=== PATIENT | male | born 1960 | race Caucasian/White ===

== ENCOUNTER 2019-04-27 17:31 | Inpatient (IN) | payer BC, OTHER ==
[2019-04-27] MEDS: SODIUM CHLORIDE 0.9% 1L BAG IV* (19:10)
[2019-04-27] MEDS: ONDANSETRON 4 MG INJ IV (19:10)
[2019-04-27] MEDS: morphine 4 MG/ML VIAL IV ×2 (19:10→19:43)
[2019-04-27 19:17] LABS: ADD MAN DIFF? NO
[2019-04-27 19:22] LABS: WHITE BLOOD COUNT 14.2 10^3/ul (4.8-10.8)
[2019-04-27 19:22] LABS: BASOPHILS % 0.2 % (0.0-2.0); HEMATOCRIT 47.7 % (42.0-52.0); HEMOGLOBIN 16.3 g/dl (14.0-18.0); LYMPHOCYTES # 0.9 10^3/ul (0.8-2.9); MEAN CORPUSCULAR HEMOGLOBIN 29.2 pg (29.0-33.0); MEAN CORPUSCULAR HGB CONC 34.2 g/dl (32.0-37.0); MEAN CORPUSCULAR VOLUME 85.3 fl (82.0-101.0); MEAN PLATELET VOLUME 10.9 fl (7.4-10.4); MONOCYTE # 0.7 10^3/ul (0.3-0.9); MONOCYTES % 4.9 % (0.0-11.0); NEUTROPHIL # 12.6 10^3/ul (1.6-7.5); NEUTROPHILS % 88.5 % (39.0-77.0); PLATELET COUNT 269 10^3/UL (140-415); RED BLOOD COUNT 5.59 10^6/ul (4.70-6.10); RED CELL DISTRIBUTION WIDTH 13.5 % (11.5-14.5)
[2019-04-27] MEDS: PIPER-TAZO 3.375 GM IV (PMX) 100 ML IVPB (19:27)
[2019-04-27 19:36] LABS: ALANINE AMINOTRANSFERASE 23 IU/L (13-69); ALBUMIN 4.5 g/dl (3.3-4.9); ALBUMIN/GLOBULIN RATIO 1.09; ALKALINE PHOSPHATASE 71 IU/L (42-121); ANION GAP 14 (5-13); ASPARTATE AMINO TRANSFERASE 33 IU/L (15-46); BILIRUBIN,INDIRECT 0.8 mg/dl (0-1.1); BILIRUBIN,TOTAL 0.8 mg/dl (0.2-1.3); BLOOD UREA NITROGEN 18 mg/dl (7-20); CALCIUM 9.2 mg/dl (8.4-10.2); CARBON DIOXIDE 23 mmol/L (21-31); CHLORIDE 105 mmol/L (97-110); CREATININE 1.08 mg/dl (0.61-1.24); Estimated GFR > 60 mL/min (>60); GLUCOSE 157 mg/dl (70-220); LIPASE 109 U/L (23-300); POTASSIUM 4.1 mmol/L (3.5-5.1); SODIUM 142 mmol/L (135-144); TOTAL PROTEIN 8.6 g/dl (6.1-8.1)
[2019-04-27 19:39] LABS: INR 0.95; PARTIAL THROMBOPLASTIN TIME 24.9 Sec (23.0-35.0); PROTIME 12.8 Sec (11.9-14.9)
[2019-04-27 19:52] LABS: TROPONIN-I < 0.012 ng/ml (0.000-0.120)
[2019-04-27 19:59] LABS: LACTIC ACID 2.4 mmol/L (0.5-2.0)
[2019-04-27] MEDS ORDERED: ONDANSETRON 4 MG INJ IV ×2 (20:00→22:00)
[2019-04-27] MEDS: LIDOCAINE 2% VISC 15 ML CUP PO (20:15)
[2019-04-27] MEDS ORDERED: MIDAZOLAM 1 MG/ML 2 ML INJ (21:34)
[2019-04-27] MEDS ORDERED: FAMOTIDINE 20 MG INJ (21:35)
[2019-04-27] MEDS ORDERED: FENTAnyl 50 MCG/ML VIAL IV ×2 (22:00)
[2019-04-27] MEDS ORDERED: LABETALOL HCL 20MG INJ IV (22:00)
[2019-04-27] MEDS ORDERED: HYDROmorphONE 1 MG/5 ML IV SYRINGE IV ×3 (22:00)
[2019-04-27] MEDS ORDERED: DEXAMETHASONE 4 MG/ML 5 ML INJ (22:38)
[2019-04-27] MEDS ORDERED: ONDANSETRON 4 MG INJ (22:38)
[2019-04-27] MEDS: BUPIVACAINE 0.5%/EPI (SDV) 30 ML INJ (22:40)
[2019-04-27] MEDS ORDERED: LABETALOL HCL 20MG INJ (22:48)
[2019-04-27] MEDS ORDERED: SUGAMMADEX SODIUM 200 MG/2 ML VIAL IV (23:11)
[2019-04-27 23:12] LABS: LACTIC ACID 1.5 mmol/L (0.5-2.0)
[2019-04-27] MEDS ORDERED: DIPHENHYDRAMINE 50 MG INJ IV (23:30)
[2019-04-27] MEDS ORDERED: IBUPROFEN 600 MG TAB PO (23:30)
[2019-04-27] MEDS ORDERED: METOCLOPRAMIDE 10 MG INJ IV (23:30)
[2019-04-27] MEDS: FENTAnyl 50 MCG/ML VIAL IV ×2 (23:35→23:46)
[2019-04-27] MEDS: ACETAMINOPHEN 1000MG/100ML IV 100 ML IVPB (23:45)
[2019-04-28 01:21] LABS: LACTIC ACID 1.6 mmol/L (0.5-2.0)
[2019-04-28] MEDS: D5W-0.45 NACL + KCL 20 MEQ 1,000 ML IV ×3 (01:39→19:17)
[2019-04-28] MEDS: PIPER-TAZO 3.375 GM IV (PMX) 100 ML IVPB ×4 (01:40→17:47)
[2019-04-28] MEDS: HYDROmorphONE 0.5 MG/0.5 ML SYG IV ×2 (07:37→15:05)
[2019-04-28 09:09] LABS: ADD MAN DIFF? NO
[2019-04-28 09:18] LABS: BASOPHILS % 0.1 % (0.0-2.0); HEMOGLOBIN 13.9 g/dl (14.0-18.0); LYMPHOCYTES # 0.7 10^3/ul (0.8-2.9); LYMPHOCYTES % 4.5 % (15.0-51.0); MEAN CORPUSCULAR HGB CONC 33.9 g/dl (32.0-37.0); MEAN CORPUSCULAR VOLUME 85.4 fl (82.0-101.0); MEAN PLATELET VOLUME 11.4 fl (7.4-10.4); MONOCYTE # 0.6 10^3/ul (0.3-0.9); MONOCYTES % 3.9 % (0.0-11.0); NEUTROPHIL # 13.4 10^3/ul (1.6-7.5); NEUTROPHILS % 91.2 % (39.0-77.0); PLATELET COUNT 221 10^3/UL (140-415); RED CELL DISTRIBUTION WIDTH 13.9 % (11.5-14.5)
[2019-04-28 09:18] LABS: WHITE BLOOD COUNT 14.7 10^3/ul (4.8-10.8)
[2019-04-28 09:39] LABS: ALANINE AMINOTRANSFERASE 17 IU/L (13-69); ALBUMIN 3.7 g/dl (3.3-4.9); ALBUMIN/GLOBULIN RATIO 1.12; ALKALINE PHOSPHATASE 40 IU/L (42-121); ANION GAP 9 (5-13); ASPARTATE AMINO TRANSFERASE 19 IU/L (15-46); BILIRUBIN,INDIRECT 1.2 mg/dl (0-1.1); BILIRUBIN,TOTAL 1.2 mg/dl (0.2-1.3); BLOOD UREA NITROGEN 14 mg/dl (7-20); CALCIUM 8.5 mg/dl (8.4-10.2); CARBON DIOXIDE 23 mmol/L (21-31); CHLORIDE 108 mmol/L (97-110); CREATININE 0.93 mg/dl (0.61-1.24); Estimated GFR > 60 mL/min (>60); GLUCOSE 170 mg/dl (70-220); SODIUM 140 mmol/L (135-144)
[2019-04-28] MEDS: KETOROLAC 30 MG INJ IV (18:10)
[2019-04-29] MEDS: PIPER-TAZO 3.375 GM IV (PMX) 100 ML IVPB ×2 (00:21→06:01)
[2019-04-29] MEDS: D5W-0.45 NACL + KCL 20 MEQ 1,000 ML IV ×3 (00:25→21:14)
[2019-04-29] MEDS: HYDROmorphONE 0.5 MG/0.5 ML SYG IV ×2 (00:25→06:01)
[2019-04-29 05:54] LABS: ADD MAN DIFF? NO
[2019-04-29 05:57] LABS: BASOPHILS % 0.3 % (0.0-2.0); EOSINOPHILS % 0.2 % (0.0-7.0); HEMATOCRIT 40.4 % (42.0-52.0); HEMOGLOBIN 13.8 g/dl (14.0-18.0); LYMPHOCYTES # 0.9 10^3/ul (0.8-2.9); LYMPHOCYTES % 6.8 % (15.0-51.0); MEAN CORPUSCULAR HEMOGLOBIN 29.2 pg (29.0-33.0); MEAN CORPUSCULAR HGB CONC 34.2 g/dl (32.0-37.0); MEAN CORPUSCULAR VOLUME 85.4 fl (82.0-101.0); MEAN PLATELET VOLUME 11.3 fl (7.4-10.4); MONOCYTE # 0.6 10^3/ul (0.3-0.9); MONOCYTES % 4.2 % (0.0-11.0); NEUTROPHIL # 11.5 10^3/ul (1.6-7.5); PLATELET COUNT 218 10^3/UL (140-415); RED BLOOD COUNT 4.73 10^6/ul (4.70-6.10); RED CELL DISTRIBUTION WIDTH 14.1 % (11.5-14.5)
[2019-04-29 06:25] LABS: ANION GAP 8 (5-13); BLOOD UREA NITROGEN 19 mg/dl (7-20); CARBON DIOXIDE 23 mmol/L (21-31); CHLORIDE 109 mmol/L (97-110); CREATININE 1.17 mg/dl (0.61-1.24); Estimated GFR > 60 mL/min (>60); GLUCOSE 151 mg/dl (70-220); SODIUM 140 mmol/L (135-144)
[2019-04-29] MEDS: ENOXAPARIN 40 MG/0.4 ML SYG SC (09:23)
[2019-04-29] MEDS: MEROPENEM 1 GM/50ML(PMX) 50 ML IVPB ×2 (13:47→21:11)
[2019-04-29] MEDS ORDERED: PIPER-TAZO 3.375 GM IV (PMX) 100 ML IVPB (15:00)
[2019-04-29] MEDS: HYDROCODONE/APAP (5/325) TAB PO (15:47)
[2019-04-29] MEDS: METOCLOPRAMIDE 10 MG INJ IV (17:47)
[2019-04-30] MEDS: HYDROCODONE/APAP (5/325) TAB PO (00:28)
[2019-04-30] MEDS: METOCLOPRAMIDE 10 MG INJ IV ×5 (00:30→23:06)
[2019-04-30] MEDS: ACETAMINOPHEN 325 MG TAB PO (01:56)
[2019-04-30 05:47] LABS: ADD MAN DIFF? NO
[2019-04-30] MEDS: MEROPENEM 1 GM/50ML(PMX) 50 ML IVPB ×3 (05:53→21:40)
[2019-04-30 05:54] LABS: WHITE BLOOD COUNT 11.2 10^3/ul (4.8-10.8)
[2019-04-30 05:54] LABS: BASOPHIL # 0.1 10^3/ul (0.0-0.1); BASOPHILS % 0.4 % (0.0-2.0); EOSINOPHILS # 0.1 10^3/ul (0.0-0.5); HEMATOCRIT 41.8 % (42.0-52.0); HEMOGLOBIN 14.3 g/dl (14.0-18.0); LYMPHOCYTES % 8.5 % (15.0-51.0); MEAN CORPUSCULAR HEMOGLOBIN 29.2 pg (29.0-33.0); MEAN CORPUSCULAR HGB CONC 34.2 g/dl (32.0-37.0); MEAN CORPUSCULAR VOLUME 85.3 fl (82.0-101.0); MEAN PLATELET VOLUME 10.9 fl (7.4-10.4); MONOCYTE # 0.7 10^3/ul (0.3-0.9); MONOCYTES % 5.8 % (0.0-11.0); NEUTROPHIL # 9.4 10^3/ul (1.6-7.5); NEUTROPHILS % 83.8 % (39.0-77.0); PLATELET COUNT 229 10^3/UL (140-415); RED CELL DISTRIBUTION WIDTH 14.1 % (11.5-14.5)
[2019-04-30 06:10] LABS: ANION GAP 9 (5-13); BLOOD UREA NITROGEN 19 mg/dl (7-20); CALCIUM 8.9 mg/dl (8.4-10.2); CARBON DIOXIDE 20 mmol/L (21-31); CHLORIDE 110 mmol/L (97-110); CREATININE 0.88 mg/dl (0.61-1.24); Estimated GFR > 60 mL/min (>60); GLUCOSE 141 mg/dl (70-220); PHOSPHORUS 2.8 mg/dl (2.5-4.9); SODIUM 139 mmol/L (135-144)
[2019-04-30] MEDS: D5W-0.45 NACL + KCL 20 MEQ 1,000 ML IV ×2 (08:20→21:17)
[2019-04-30] MEDS: ENOXAPARIN 40 MG/0.4 ML SYG SC (08:36)
[2019-04-30] MEDS: KETOROLAC 30 MG INJ IV (10:20)
[2019-04-30] MEDS: metroNIDAZOLE 500 MG/NS (PMX) 100 ML IVPB ×2 (16:01→22:57)
[2019-04-30] MEDS: HYDROmorphONE 0.5 MG/0.5 ML SYG IV (18:22)
[2019-04-30] MEDS: ONDANSETRON 4 MG INJ IV (20:33)
[2019-05-01] MEDS: D5W-0.45 NACL + KCL 20 MEQ 1,000 ML IV ×4 (03:17→19:26)
[2019-05-01] MEDS: MEROPENEM 1 GM/50ML(PMX) 50 ML IVPB ×3 (05:28→21:32)
[2019-05-01] MEDS: METOCLOPRAMIDE 10 MG INJ IV ×2 (05:45→12:10)
[2019-05-01] MEDS: metroNIDAZOLE 500 MG/NS (PMX) 100 ML IVPB (06:03)
[2019-05-01 06:51] LABS: ANION GAP 12 (5-13); BLOOD UREA NITROGEN 21 mg/dl (7-20); CALCIUM 9.2 mg/dl (8.4-10.2); CARBON DIOXIDE 20 mmol/L (21-31); CHLORIDE 108 mmol/L (97-110); CREATININE 0.95 mg/dl (0.61-1.24); Estimated GFR > 60 mL/min (>60); GLUCOSE 142 mg/dl (70-220); MAGNESIUM 2.1 mg/dl (1.7-2.5); POTASSIUM 4.1 mmol/L (3.5-5.1); SODIUM 140 mmol/L (135-144)
[2019-05-01] MEDS: ENOXAPARIN 40 MG/0.4 ML SYG SC (08:48)
[2019-05-01] MEDS ORDERED: METOCLOPRAMIDE 10 MG INJ IV (13:30)
[2019-05-02] MEDS: MEROPENEM 1 GM/50ML(PMX) 50 ML IVPB ×3 (05:11→22:04)
[2019-05-02] MEDS: D5W-0.45 NACL + KCL 20 MEQ 1,000 ML IV ×2 (05:12→22:02)
[2019-05-02 05:27] LABS: ADD MAN DIFF? NO
[2019-05-02 05:31] LABS: WHITE BLOOD COUNT 8.9 10^3/ul (4.8-10.8)
[2019-05-02 05:31] LABS: BASOPHIL # 0.1 10^3/ul (0.0-0.1); BASOPHILS % 0.6 % (0.0-2.0); EOSINOPHILS # 0.1 10^3/ul (0.0-0.5); EOSINOPHILS % 1.2 % (0.0-7.0); HEMATOCRIT 43.4 % (42.0-52.0); HEMOGLOBIN 14.9 g/dl (14.0-18.0); LYMPHOCYTES # 0.9 10^3/ul (0.8-2.9); LYMPHOCYTES % 9.9 % (15.0-51.0); MEAN CORPUSCULAR HEMOGLOBIN 28.9 pg (29.0-33.0); MEAN CORPUSCULAR HGB CONC 34.3 g/dl (32.0-37.0); MEAN CORPUSCULAR VOLUME 84.1 fl (82.0-101.0); MEAN PLATELET VOLUME 10.6 fl (7.4-10.4); MONOCYTE # 0.6 10^3/ul (0.3-0.9); MONOCYTES % 6.8 % (0.0-11.0); NEUTROPHIL # 7.2 10^3/ul (1.6-7.5); NEUTROPHILS % 80.9 % (39.0-77.0); PLATELET COUNT 305 10^3/UL (140-415); RED BLOOD COUNT 5.16 10^6/ul (4.70-6.10); RED CELL DISTRIBUTION WIDTH 13.5 % (11.5-14.5)
[2019-05-02 05:55] LABS: ANION GAP 10 (5-13); BLOOD UREA NITROGEN 23 mg/dl (7-20); CALCIUM 9.5 mg/dl (8.4-10.2); CARBON DIOXIDE 20 mmol/L (21-31); CHLORIDE 107 mmol/L (97-110); CREATININE 0.89 mg/dl (0.61-1.24); Estimated GFR > 60 mL/min (>60); GLUCOSE 143 mg/dl (70-220); MAGNESIUM 2.1 mg/dl (1.7-2.5); POTASSIUM 3.9 mmol/L (3.5-5.1); SODIUM 137 mmol/L (135-144)
[2019-05-02] MEDS: ENOXAPARIN 40 MG/0.4 ML SYG SC (08:16)
[2019-05-02] MEDS: SOD CHLORIDE 0.9% 100 ML (15:17)
[2019-05-02] MEDS: IOHEXOL 300MG/ML 150 ML BTL (15:17)
[2019-05-03 06:06] LABS: ADD MAN DIFF? NO
[2019-05-03 06:15] LABS: WHITE BLOOD COUNT 8.9 10^3/ul (4.8-10.8)
[2019-05-03 06:15] LABS: BASOPHIL # 0.1 10^3/ul (0.0-0.1); BASOPHILS % 0.7 % (0.0-2.0); EOSINOPHILS # 0.1 10^3/ul (0.0-0.5); EOSINOPHILS % 1.5 % (0.0-7.0); HEMOGLOBIN 15.5 g/dl (14.0-18.0); LYMPHOCYTES # 1.2 10^3/ul (0.8-2.9); LYMPHOCYTES % 13.1 % (15.0-51.0); MEAN CORPUSCULAR HEMOGLOBIN 28.9 pg (29.0-33.0); MEAN CORPUSCULAR HGB CONC 33.7 g/dl (32.0-37.0); MEAN CORPUSCULAR VOLUME 85.8 fl (82.0-101.0); MEAN PLATELET VOLUME 10.6 fl (7.4-10.4); MONOCYTE # 0.6 10^3/ul (0.3-0.9); MONOCYTES % 6.9 % (0.0-11.0); NEUTROPHIL # 6.9 10^3/ul (1.6-7.5); NEUTROPHILS % 77.1 % (39.0-77.0); PLATELET COUNT 342 10^3/UL (140-415); RED BLOOD COUNT 5.36 10^6/ul (4.70-6.10); RED CELL DISTRIBUTION WIDTH 13.4 % (11.5-14.5)
[2019-05-03 06:35] LABS: MAGNESIUM 2.2 mg/dl (1.7-2.5)
[2019-05-03 06:41] LABS: ANION GAP 12 (5-13); BLOOD UREA NITROGEN 24 mg/dl (7-20); CALCIUM 9.1 mg/dl (8.4-10.2); CARBON DIOXIDE 21 mmol/L (21-31); CHLORIDE 108 mmol/L (97-110); CREATININE 0.91 mg/dl (0.61-1.24); Estimated GFR > 60 mL/min (>60); GLUCOSE 132 mg/dl (70-220); POTASSIUM 3.9 mmol/L (3.5-5.1); SODIUM 141 mmol/L (135-144)
[2019-05-03] MEDS: MEROPENEM 1 GM/50ML(PMX) 50 ML IVPB ×3 (06:42→22:01)
[2019-05-03] MEDS: ENOXAPARIN 40 MG/0.4 ML SYG SC (08:25)
[2019-05-03] MEDS: D5W-0.45 NACL + KCL 20 MEQ 1,000 ML IV ×3 (10:57→22:05)
[2019-05-04] MEDS: MEROPENEM 1 GM/50ML(PMX) 50 ML IVPB ×3 (05:32→21:28)
[2019-05-04] MEDS: ENOXAPARIN 40 MG/0.4 ML SYG SC (08:40)
[2019-05-05] MEDS: MEROPENEM 1 GM/50ML(PMX) 50 ML IVPB ×3 (05:51→21:38)
[2019-05-05] MEDS: ENOXAPARIN 40 MG/0.4 ML SYG SC (08:34)
[2019-05-06] MEDS: MEROPENEM 1 GM/50ML(PMX) 50 ML IVPB (06:12)
[2019-05-06 06:27] LABS: ADD MAN DIFF? NO
[2019-05-06 06:36] LABS: BASOPHIL # 0.1 10^3/ul (0.0-0.1); BASOPHILS % 0.7 % (0.0-2.0); EOSINOPHILS # 0.1 10^3/ul (0.0-0.5); EOSINOPHILS % 1.8 % (0.0-7.0); HEMATOCRIT 43.5 % (42.0-52.0); HEMOGLOBIN 14.9 g/dl (14.0-18.0); LYMPHOCYTES # 1.5 10^3/ul (0.8-2.9); LYMPHOCYTES % 20.4 % (15.0-51.0); MEAN CORPUSCULAR HGB CONC 34.3 g/dl (32.0-37.0); MEAN CORPUSCULAR VOLUME 84.8 fl (82.0-101.0); MEAN PLATELET VOLUME 10.4 fl (7.4-10.4); MONOCYTE # 0.4 10^3/ul (0.3-0.9); MONOCYTES % 5.5 % (0.0-11.0); NEUTROPHIL # 5.1 10^3/ul (1.6-7.5); NEUTROPHILS % 71.3 % (39.0-77.0); PLATELET COUNT 413 10^3/UL (140-415); RED BLOOD COUNT 5.13 10^6/ul (4.70-6.10); RED CELL DISTRIBUTION WIDTH 12.9 % (11.5-14.5)
[2019-05-06 06:36] LABS: WHITE BLOOD COUNT 7.1 10^3/ul (4.8-10.8)
[2019-05-06 06:57] LABS: ANION GAP 8 (5-13); BLOOD UREA NITROGEN 20 mg/dl (7-20); CALCIUM 9.2 mg/dl (8.4-10.2); CARBON DIOXIDE 26 mmol/L (21-31); CHLORIDE 103 mmol/L (97-110); CREATININE 0.89 mg/dl (0.61-1.24); Estimated GFR > 60 mL/min (>60); GLUCOSE 116 mg/dl (70-220); POTASSIUM 4.3 mmol/L (3.5-5.1); SODIUM 137 mmol/L (135-144)
[2019-05-06] MEDS: ENOXAPARIN 40 MG/0.4 ML SYG SC (09:45)
[2019-05-06] MEDS: METOCLOPRAMIDE 10 MG INJ IV (21:36)
[2019-05-07] MEDS: METOCLOPRAMIDE 10 MG INJ IV ×3 (03:36→15:30)
[2019-05-07 06:04] LABS: ADD MAN DIFF? NO
[2019-05-07 06:09] LABS: WHITE BLOOD COUNT 6.9 10^3/ul (4.8-10.8)
[2019-05-07 06:09] LABS: BASOPHIL # 0.1 10^3/ul (0.0-0.1); BASOPHILS % 0.9 % (0.0-2.0); EOSINOPHILS # 0.1 10^3/ul (0.0-0.5); EOSINOPHILS % 1.7 % (0.0-7.0); HEMATOCRIT 42.2 % (42.0-52.0); HEMOGLOBIN 14.4 g/dl (14.0-18.0); LYMPHOCYTES # 1.3 10^3/ul (0.8-2.9); LYMPHOCYTES % 18.1 % (15.0-51.0); MEAN CORPUSCULAR HGB CONC 34.1 g/dl (32.0-37.0); MEAN CORPUSCULAR VOLUME 84.9 fl (82.0-101.0); MEAN PLATELET VOLUME 9.9 fl (7.4-10.4); MONOCYTE # 0.3 10^3/ul (0.3-0.9); MONOCYTES % 4.8 % (0.0-11.0); NEUTROPHIL # 5.1 10^3/ul (1.6-7.5); NEUTROPHILS % 74.1 % (39.0-77.0); PLATELET COUNT 416 10^3/UL (140-415); RED BLOOD COUNT 4.97 10^6/ul (4.70-6.10); RED CELL DISTRIBUTION WIDTH 12.9 % (11.5-14.5)
[2019-05-07 06:39] LABS: ANION GAP 9 (5-13); BLOOD UREA NITROGEN 23 mg/dl (7-20); CALCIUM 8.9 mg/dl (8.4-10.2); CARBON DIOXIDE 26 mmol/L (21-31); CHLORIDE 103 mmol/L (97-110); Estimated GFR > 60 mL/min (>60); GLUCOSE 108 mg/dl (70-220); MAGNESIUM 2.3 mg/dl (1.7-2.5); POTASSIUM 4.5 mmol/L (3.5-5.1); SODIUM 138 mmol/L (135-144)
[2019-05-07] MEDS: IOHEXOL 300MG/ML 150 ML BTL (08:03)
[2019-05-07] MEDS: ENOXAPARIN 40 MG/0.4 ML SYG SC (09:18)
== END 2019-05-07 16:15 | disposition home or self-care (01) | DRG 342 ==
LOC: 2NE 04-28 01:22 → E/R 17:31 → REC 19:43
PROC: 0DTJ4ZZ Resection of Appendix, Percutaneous Endoscopic Approach (ICD-10-PCS; principal; 2019-04-27 21:00)
DX: K35.31 Acute appendicitis with localized peritonitis and gangrene, without perforation (principal); K91.30 Postprocedural intestinal obstruction, unspecified as to partial versus complete; R19.7 Diarrhea, unspecified
CPT/HCPCS: 36415; 71045; 74018; 74176; 74177; 74250; 80048; 80053; 83605; 83690; 83735; 84100; 84484; 85025; 85610; 85730; 87040-91; 87070; 87075; 87102; 88304; 93005; 93971; 96365; 96375; 96376; 99285-25